=== PATIENT | male | born 1975 | race Two or more races ===

== ENCOUNTER 2019-09-06 20:17 | Emergency (ER) | payer SELFPAY ==
[~2019-09-06] VITALS: Ht 182.9 cm; Wt 77.1 kg
[2019-09-06 23:13] LABS: Basophils # (auto) 0.1 uL; Basophils % (auto) 0.5 % (0.0-2.0); Eosinophils # (auto) 0.1 uL; Eosinophils % (auto) 0.5 % (0.0-7.0); Hematocrit 36.3 % (41.0-53.0); Hemoglobin 12.4 g/dL (13.5-17.5); Lymphocytes # (auto) 1.6 uL; Lymphocytes % (auto) 11.2 % (10.0-50.0); Mean Corpuscular Hemoglobin 32.3 pg (28.0-32.0); Mean Corpuscular Hgb Conc. 34.2 g/dL (32.0-36.0); Mean Corpuscular Volume 94.6 fL (80.0-100.0); Monocytes # (auto) 1.1 uL; Monocytes % (auto) 7.4 % (0.0-12.0); Neutrophils # (auto) 11.5 uL; Neutrophils % (auto) 80.4 % (37.0-80.0); Platelet Count (auto) 316 10^3/uL (140-450); Red Blood Cells 3.84 10^6/uL (4.5-5.90); Red Cell Distribution Width 13.7 % (11.8-14.3); White Blood Cell 14.4 10^3/uL (4.4-10.8)
[2019-09-06 23:34] LABS: Albumin 3.6 g/dL (3.4-5.0); BUN/Creatinine Ratio 18.8; Calcium 8.6 mg/dL (8.5-10.1); Potassium 4.2 mmol/L (3.5-5.1)
[2019-09-06 23:37] LABS: Bilirubin, Total 0.7 mg/dL (0.2-1.0); Total Protein 7.4 g/dL (6.4-8.2)
[2019-09-07] MEDS ORDERED: cefTRIAXone W LIDOCAINE 1 GM IM IM ONE (01:30)
[2019-09-07] MEDS ORDERED: cefTRIAXone SOD 1,000 MG VL ONE (02:01)
[2019-09-07 02:15] VITALS: BP 127/76
== END 2019-09-07 02:24 | disposition home or self-care (01) ==
LOC: ER 20:23
DX: S60.460A Insect bite (nonvenomous) of right index finger, initial encounter (principal); L03.011 Cellulitis of right finger; F15.10 Other stimulant abuse, uncomplicated; Z59.0 Homelessness; W57.XXXA Bitten or stung by nonvenomous insect and other nonvenomous arthropods, initial encounter; Y93.89 Activity, other specified; Y99.8 Other external cause status; Y92.89 Other specified places as the place of occurrence of the external cause
CPT/HCPCS: 36415; 80053; 85025; 87040; 96372; 99283; J0696; J7030